=== PATIENT | male | born 1980 | race Caucasian/White ===

== ENCOUNTER 2017-12-04 08:56 | Day surgery (SDC) | payer OTHER ==
[2017-12-04 09:32] LABS: HEMATOCRIT 44.3 % (37.9-51.0); HEMOGLOBIN 15.4 g/dL (13.5-17.0); MEAN CORPUSCULAR HEMOGLOBIN 30.6 pg (27.0-33.4); MEAN CORPUSCULAR HGB CONC 34.7 g/dL (32.0-36.0); MEAN CORPUSCULAR VOLUME 88 fl (80-97); PLATELET COUNT 138 10^3/uL (150-450); RED BLOOD COUNT 5.02 10^6/uL (4.35-5.55); RED CELL DISTRIBUTION WIDTH 12.4 % (11.5-14.0); WHITE BLOOD COUNT 5.5 10^3/uL (4.0-10.5)
[2017-12-04 09:42] LABS: INTERNATIONAL RATION (INR) 0.89; PROTHROMBIN TIME 12.5 SEC (11.4-15.4)
[2017-12-04 09:43] LABS: PARTIAL THROMBOPLASTIN TIME 25.5 SEC (23.5-35.8)
[2017-12-04 09:45] LABS: BLOOD UREA NITROGEN 13 mg/dL (7-20)
[2017-12-04] MEDS ORDERED: OXYCODONE-ACETAMINOPHEN 5-325 MG TABLET ONE ×2 (10:24→12:22)
[2017-12-04] MEDS ORDERED: MIDAZOLAM 2 MG/2 ML INJ ONE ×2 (11:11→11:39)
[2017-12-04] MEDS ORDERED: LIDOCAINE 1% INJ-PF (10 MG/ML) 30 ML SDV ONE (11:11)
[2017-12-04] MEDS ORDERED: FENTANYL CITRATE INJ/PF 100 MCG/2 ML AMPUL ONE (11:11)
--- NOTE | 2017-12-04 13:36 | RADIOLOGY REPORT (SQ) ---
EXAM DESCRIPTION: CT BIOPSY LIVER; CT NEEDLE PLACEMENT COMPLETED DATE/TIME: 12/04/2017 11:54 am; 12/04/2017 11:53 am REASON FOR STUDY: ELEVATED ALT; ELEVATED ALT, LIVER BX COMPARISON: None. TECHNIQUE: After obtaining informed consent, the patient was brought to the CT suite and was placed supine on the CT gurney. The patient was prepped and draped in the usual sterile fashion . Axial jessica ges were obtained for targeting of theright lobe liver. An appropriate access site was selected. IV s edation was administered and physician direction by the registered nurse using 2 milligrams of Versed and 75 micrograms of fentanyl. Physiologic monitoring was provided before, during, and after sedatio n. The total sedation time was 30 minutes. Documentation face to face time, the performing proceduralist, spent monitoring the patient: 5minutes . Noncontrasted CT of the liver was performed to localize an approach for the right lobe liver biopsy. A percutaneous site was marked. Time out was performed. After skin prep and local lidocaine for skin and deep tissue anesthesia, a coaxial 18/19 gauge biops y needle system was used to obtain several cores of tissue from the right lobe liver. These were sub mitted to the lab in formalin. Biopsy tract was embolized with 3 Gel-Foam plugs. No immediate postp rocedure complications. Total of 1.[address] fluoro was used. All CT scanners at this facility use dose modulation, iterative reconstruction, and/or weight based d osing when appropriate to reduce radiation dose to as low as reasonably achievable (ALARA). [facility]: Dose Right [facility]: CareDose [facility]: Dose Right [facility]: Teradose 4D [facility]: [employer] RADIATION DOSE: CT Rad equipment meets quality standard of care and radiation dose reduction techniq ues were employed. CTDIvol: 20.1 mGy. DLP: 418 mGy-cm. mGy. LIMITATIONS: None. FINDINGS: CT guided liver biopsy as detailed above. IMPRESSION: CT GUIDED RIGHT LOBE LIVER BIOPSY PERFORMED ABOVE. PATHOLOGY PENDING. NO IMMEDIATE COMPLICATIONS. IV conscious sedation COMMENT: Patient medication list reviewed:Yes- Quality ID# [id number]:Eligible professional attests to docu menting in the medical record they obtained, updated, or reviewed the patient's current medications.. Quality ID 145: Final reports for procedures using fluoroscopy that document radiation exposure christian jean, or exposure time and number of fluorographic images (if radiation exposure indices are not avail able) TECHNICAL DOCUMENTATION: JOB ID: [id number] Quality ID # [id number]: Final reports with documentation of one or more dose reduction techniques (e.g., A utomated exposure control, adjustment of the mA and/or kV according to patient size, use of iterative reconstruction technique) 2010 [employer]- All Rights Reserved Reading location - IP/workstation name: [facility]
--- NOTE | 2017-12-04 13:36 | RADIOLOGY REPORT (SQ) ---
EXAM DESCRIPTION: CT BIOPSY LIVER; CT NEEDLE PLACEMENT COMPLETED DATE/TIME: 12/04/2017 11:54 am; 12/04/2017 11:53 am REASON FOR STUDY: ELEVATED ALT; ELEVATED ALT, LIVER BX COMPARISON: None. TECHNIQUE: After obtaining informed consent, the patient was brought to the CT suite and was placed supine on the CT gurney. The patient was prepped and draped in the usual sterile fashion . Axial jessica ges were obtained for targeting of theright lobe liver. An appropriate access site was selected. IV s edation was administered and physician direction by the registered nurse using 2 milligrams of Versed and 75 micrograms of fentanyl. Physiologic monitoring was provided before, during, and after sedatio n. The total sedation time was 30 minutes. Documentation face to face time, the performing proceduralist, spent monitoring the patient: 5minutes . Noncontrasted CT of the liver was performed to localize an approach for the right lobe liver biopsy. A percutaneous site was marked. Time out was performed. After skin prep and local lidocaine for skin and deep tissue anesthesia, a coaxial 18/19 gauge biops y needle system was used to obtain several cores of tissue from the right lobe liver. These were sub mitted to the lab in formalin. Biopsy tract was embolized with 3 Gel-Foam plugs. No immediate postp rocedure complications. Total of 1.[address] fluoro was used. All CT scanners at this facility use dose modulation, iterative reconstruction, and/or weight based d osing when appropriate to reduce radiation dose to as low as reasonably achievable (ALARA). [facility]: Dose Right [facility]: CareDose [facility]: Dose Right [facility]: Teradose 4D [facility]: [employer] RADIATION DOSE: CT Rad equipment meets quality standard of care and radiation dose reduction techniq ues were employed. CTDIvol: 20.1 mGy. DLP: 418 mGy-cm. mGy. LIMITATIONS: None. FINDINGS: CT guided liver biopsy as detailed above. IMPRESSION: CT GUIDED RIGHT LOBE LIVER BIOPSY PERFORMED ABOVE. PATHOLOGY PENDING. NO IMMEDIATE COMPLICATIONS. IV conscious sedation COMMENT: Patient medication list reviewed:Yes- Quality ID# [id number]:Eligible professional attests to docu menting in the medical record they obtained, updated, or reviewed the patient's current medications.. Quality ID 145: Final reports for procedures using fluoroscopy that document radiation exposure christian jean, or exposure time and number of fluorographic images (if radiation exposure indices are not avail able) TECHNICAL DOCUMENTATION: JOB ID: [id number] Quality ID # [id number]: Final reports with documentation of one or more dose reduction techniques (e.g., A utomated exposure control, adjustment of the mA and/or kV according to patient size, use of iterative reconstruction technique) 2010 [employer]- All Rights Reserved Reading location - IP/workstation name: [facility]
[2017-12-04 14:15] VITALS: BP 118/74
== END 2017-12-04 13:50 | disposition home or self-care (01) ==
LOC: RAD 08:56
PROVIDERS: ATTEND Internal Medicine Gastroenterology
DX: R79.89 Other specified abnormal findings of blood chemistry (principal); K76.0 Fatty (change of) liver, not elsewhere classified
CPT/HCPCS: 36415; 84520; 82565; 85027; 85610; 85730; 88305 ×2; 88313 ×2; 77012; 47000; J2250; J3010; J3490